=== PATIENT | female | born 1955 | race African-American/Black ===

== ENCOUNTER 2020-02-22 08:20 | Observation (INO) ==
[2020-02-22] MEDS ORDERED: DIAZEPAM 5 MG TABLET PO ONE (08:50)
[2020-02-22] MEDS ORDERED: fentaNYL 100 MCG/2 ML VIAL IV ONE (08:50)
[2020-02-22] MEDS ORDERED: MIDAZOLAM 2 MG/2 ML VIAL IV ONE (08:50)
[2020-02-22 09:05] LABS: Basophils % 0.4 % (0.0-0.8); Eosinophils # 0.1 10*3/uL (0.0-0.87); Eosinophils % 0.7 % (0.00-10.9); Hematocrit 41.3 VOL% (35.7-47.0); Hemoglobin 12.5 GM/DL (12.0-16.0); Immature Granulocytes % 0.6 %; Immature Granulocytes Absolute 0.05 #; Lymphocytes # 1.4 10*3/uL (1.4-4.0); Lymphocytes % 16.4 % (21.3-54.2); Mean Corpuscular HGB Conc 30.3 GM/DL (32-36); Mean Platelet Volume 9.4 FL (9.6-12.0); Monocytes % 7.4 % (1.7-12.7); Neutrophils % 74.5 % (38.7-73.9); Platelet Count 225 T/CUMM (130-400); Red Blood Count 4.54 MC/CUMM (3.8-5.5); Red Cell Distribution Width 13.2 % (9.3-17.3); White Blood Count 8.6 T/CUMM (4-12)
[2020-02-22 09:22] LABS: PT Patient Result 10.4 SECS (9.8-11.9); Partial Thromboplastin Time 25.9 SECS (23.9-33.8)
[2020-02-22] MEDS ORDERED: DIAZEPAM 5 MG TABLET ONE (09:43)
[2020-02-22] MEDS: SODIUM CHLORIDE 0.45% 1,000 ML IV SCH (09:45)
[2020-02-22] MEDS ORDERED: fentaNYL 100 MCG/2 ML VIAL ONE (10:32)
[2020-02-22] MEDS ORDERED: MIDAZOLAM 2 MG/2 ML VIAL ONE (10:33)
[2020-02-22] MEDS ORDERED: ACETAMINOPHEN 325 MG TABLET ONE (13:23)
[2020-02-22] MEDS ORDERED: ACETAMINOPHEN 325 MG TABLET PO STA (13:30)
[2020-02-22] MEDS ORDERED: NITROGLYCERIN SL 0.4 MG TABLET SL PRN (16:30)
[2020-02-22] MEDS ORDERED: IBUPROFEN 800 MG TABLET PO PRN (16:30)
[2020-02-22] MEDS: HYDROmorphone 2 MG/1 ML VIAL IV PRN ×2 (17:33→21:52)
[2020-02-22] MEDS ORDERED: ALBUTEROL 2.5 MG/3 ML NEB RESP TX PRN (19:00)
[2020-02-22] MEDS: HydrOXYzine PAMOATE 50 MG CAPSULE PO SCH (21:53)
[2020-02-22] MEDS: clonazePAM 0.5 MG TABLET PO SCH (21:53)
[2020-02-22] MEDS: carvediloL 12.5 MG TABLET PO SCH (21:53)
[2020-02-22] MEDS: CHOLECALCIFEROL 1,000 UNIT TABLET PO SCH (21:53)
[2020-02-22] MEDS: THEOPHYLLINE ER 300 MG TABLET PO SCH (21:53)
[2020-02-22] MEDS: BUDESONIDE/FORMOTEROL 80-4.5 INHALER 6.9 GM INH SCH (21:54)
[2020-02-22] MEDS: amLODIPine 10 MG TABLET PO SCH (21:54)
[2020-02-23] MEDS: ALBUTEROL/IPRATROPIUM 3 ML NEB RESP TX SCH ×5 (07:28→19:50)
[2020-02-23] MEDS: THEOPHYLLINE ER 300 MG TABLET PO SCH ×2 (08:34→20:58)
[2020-02-23] MEDS: clonazePAM 0.5 MG TABLET PO SCH ×2 (08:34→20:57)
[2020-02-23] MEDS: FUROSEMIDE 20 MG TABLET PO SCH (08:34)
[2020-02-23] MEDS: carvediloL 12.5 MG TABLET PO SCH ×2 (08:34→20:57)
[2020-02-23] MEDS: HydrOXYzine PAMOATE 50 MG CAPSULE PO SCH ×3 (08:34→20:58)
[2020-02-23] MEDS: LOSARTAN 50 MG TABLET PO SCH (08:34)
[2020-02-23] MEDS: VILAZODONE 20 MG PO SCH (08:35)
[2020-02-23] MEDS: BUDESONIDE/FORMOTEROL 80-4.5 INHALER 6.9 GM INH SCH ×2 (08:37→21:03)
[2020-02-23] MEDS: SODIUM CHLORIDE 0.45% 1,000 ML IV SCH (12:58)
[2020-02-23] MEDS: HYDROmorphone 2 MG/1 ML VIAL IV PRN (12:59)
[2020-02-23] MEDS ORDERED: HYDROmorphone 2 MG/1 ML VIAL IV PRN (16:12)
[2020-02-23] MEDS: amLODIPine 10 MG TABLET PO SCH (20:57)
[2020-02-23] MEDS: CHOLECALCIFEROL 1,000 UNIT TABLET PO SCH (20:58)
[2020-02-24] MEDS: ALBUTEROL/IPRATROPIUM 3 ML NEB RESP TX SCH ×4 (07:10→19:34)
[2020-02-24] MEDS: LOSARTAN 50 MG TABLET PO SCH (08:56)
[2020-02-24] MEDS: carvediloL 12.5 MG TABLET PO SCH ×2 (08:56→20:29)
[2020-02-24] MEDS: THEOPHYLLINE ER 300 MG TABLET PO SCH ×2 (08:57→20:29)
[2020-02-24] MEDS: clonazePAM 0.5 MG TABLET PO SCH ×2 (08:57→20:29)
[2020-02-24] MEDS: FUROSEMIDE 20 MG TABLET PO SCH (08:57)
[2020-02-24] MEDS: BUDESONIDE/FORMOTEROL 80-4.5 INHALER 6.9 GM INH SCH ×2 (08:57→20:32)
[2020-02-24] MEDS: HydrOXYzine PAMOATE 50 MG CAPSULE PO SCH ×3 (08:58→20:30)
[2020-02-24] MEDS: VILAZODONE 20 MG PO SCH (08:58)
[2020-02-24] MEDS: amLODIPine 10 MG TABLET PO SCH (20:29)
[2020-02-24] MEDS: CHOLECALCIFEROL 1,000 UNIT TABLET PO SCH (20:30)
[2020-02-24] MEDS: SODIUM CHLORIDE 0.45% 1,000 ML IV SCH ×2 (20:37→20:38)
[2020-02-25] MEDS: ALBUTEROL/IPRATROPIUM 3 ML NEB RESP TX SCH (07:28)
[2020-02-25 07:40] VITALS: BP 128/68
[2020-02-25] MEDS: clonazePAM 0.5 MG TABLET PO SCH ×2 (07:47→08:30)
[2020-02-25] MEDS: LOSARTAN 50 MG TABLET PO SCH ×2 (07:47→08:30)
[2020-02-25] MEDS: THEOPHYLLINE ER 300 MG TABLET PO SCH ×2 (07:47→08:31)
[2020-02-25] MEDS: FUROSEMIDE 20 MG TABLET PO SCH ×2 (07:48→08:30)
[2020-02-25] MEDS: HydrOXYzine PAMOATE 50 MG CAPSULE PO SCH ×2 (07:48→08:31)
[2020-02-25] MEDS: carvediloL 12.5 MG TABLET PO SCH ×2 (07:48→08:30)
[2020-02-25] MEDS: SODIUM CHLORIDE 0.45% 1,000 ML IV SCH (08:30)
[2020-02-25] MEDS: BUDESONIDE/FORMOTEROL 80-4.5 INHALER 6.9 GM INH SCH (08:31)
[2020-02-25] MEDS: VILAZODONE 20 MG PO SCH (08:31)
== END 2020-02-25 11:26 | disposition home or self-care (01) ==
LOC: N.RAD 08:20 → N.SDSINP 08:20 → N.TELES 08:20 → N.SDSINP 08:21 → N.TELES 14:46
PROVIDERS: ADMIT Radiology Body Imaging; ATTEND Radiology Body Imaging

== ENCOUNTER 2020-12-29 15:50 | Inpatient (IN) ==
[2020-12-29] MEDS ORDERED: ALBUTEROL 2.5 MG/3 ML NEB RESP TX STA (16:08)
[2020-12-29] MEDS ORDERED: methylPREDNISolone SOD SUC 125 MG/2 ML VIAL IV STA (16:08)
[2020-12-29] MEDS ORDERED: ETOMIDATE 20 MG/10 ML VIAL IV ONE (16:10)
[2020-12-29] MEDS ORDERED: ROCURONIUM 100 MG/10 ML VIAL IV ONE (16:11)
[2020-12-29] MEDS ORDERED: PIPERACILLIN/TAZOBACTAM 3,375 MG in SODIUM CHLORIDE 0.9% 100 ML IV STA (16:35)
[2020-12-29 16:38] LABS: ABG Base Excess 0.1 MMOL/L (-2.5-2.5); ABG HCO3 24.5 MMOL/L (20-26); ABG Oxygen Saturation 99.8 % (95-100); ABG PCO2 59.6 MM HG (35-48); ABG PH 7.284 (7.35-7.45); ABG TCO2 25.2 MMOL/L (23-27); Allen Test Positive; Pt O2 Delivery Device Ventilator
[2020-12-29 16:45] LABS: Basophils % 0.4 % (0.0-0.8); Eosinophils # 0.1 10*3/uL (0.0-0.87); Eosinophils % 0.6 % (0.00-10.9); Hematocrit 43.4 VOL% (35.7-47.0); Hemoglobin 12.5 GM/DL (12.0-16.0); Immature Granulocytes % 1.7 %; Immature Granulocytes Absolute 0.14 #; Lymphocytes # 2.9 10*3/uL (1.4-4.0); Lymphocytes % 34.6 % (21.3-54.2); Mean Corpuscular HGB Conc 28.8 GM/DL (32-36); Mean Corpuscular Volume 94.3 FL (87-102); Mean Platelet Volume 9.8 FL (9.6-12.0); Monocytes % 9.8 % (1.7-12.7); Neutrophils % 52.9 % (38.7-73.9); Platelet Count 215 T/CUMM (130-400); Red Cell Distribution Width 13.2 % (9.3-17.3); White Blood Count 8.2 T/CUMM (4-12)
[2020-12-29 16:49] LABS: Amorphous Crystals,Urine Occasional /HPF (Few); Bilirubin,Urine Negative (Negative); Blood, Urine Negative (Negative); Glucose,Urine (UA) 50 mg/dL (Negative); Ketones,Urine Negative (Negative); Nitrite,Urine Negative (Negative); Protein,Urine 30 MG/DL; Urine Appearance CLOUDY (Clear); Urine Color Yellow (Yellow); Urine Specific Gravity 1.013 (1.001-1.035); Urine Urobilinogen < 2.0 EU/DL (0.2-1.0)
[2020-12-29 16:56] LABS: PT Patient Result 10.4 SECS (9.8-11.9)
[2020-12-29] MEDS ORDERED: SODIUM CHLORIDE 0.9% 1,000 ML IV STA (17:00)
[2020-12-29 17:12] LABS: Alanine Aminotransferase 27 U/L (13-56); Albumin 3.2 G/DL (3.4-5.0); Alkaline Phosphatase 68 U/L (45-117); Aspartate Amino Transferase 36 U/L (0-37); Bilirubin,Total < 0.39 MG/DL (0.2-1.0); Blood Urea Nitrogen 17 MG/DL (7-18); Calcium 8.6 MG/DL (8.5-10.1); Carbon Dioxide 29 MMOL/L (21-32); Estimated Glom Filtration Rate 61 ML/MIN; Glucose 174 MG/DL (74-106); Osmolality,Calculated 284.4 MOS/KG (273-304); Sodium 140 MMOL/L (136-145); Total Protein 6.3 G/DL (6.4-8.3)
[2020-12-29] MEDS ORDERED: PIPERACILLIN/TAZOBACTAM 3,375 MG VIAL IV ONE (17:18)
[2020-12-29 17:22] LABS: Anisocytosis Slight; Elliptocytes Few; Hypochromasia 1+; Platelet Estimate Adequate
[2020-12-29] MEDS ORDERED: ALBUTEROL/IPRATROPIUM 3 ML NEB RESP TX STA (18:01)
[2020-12-29] MEDS ORDERED: guaiFENesin/DM ER 600-30 MG TABLET PO PRN (18:02)
[2020-12-29] MEDS ORDERED: ONDANSETRON 4 MG/2 ML VIAL IV PRN (18:02)
[2020-12-29] MEDS ORDERED: ALBUTEROL 2.5 MG/3 ML NEB RESP TX PRN (18:02)
[2020-12-29] MEDS ORDERED: PHENYLEPHRINE DRIP 40 MG/250 ML PREMIX IV SCH (18:30)
[2020-12-29] MEDS: ALBUTEROL/IPRATROPIUM 3 ML NEB RESP TX SCH (19:30)
[2020-12-29] MEDS: LACTATED RINGERS 1,000 ML IV SCH (20:00)
[2020-12-29] MEDS: MIDAZOLAM 100 MG in SODIUM CHLORIDE 0.9% 80 ML IV PRN (20:00)
[2020-12-29] MEDS: PANTOPRAZOLE 40 MG VIAL IV SCH (22:02)
[2020-12-29] MEDS: ENOXAPARIN 40 MG/0.4 ML SYRINGE SUBCUT SCH (22:50)
[2020-12-29] MEDS: LEVOFLOXACIN INJ 750 MG in PREMIX 1 EACH IV SCH (22:50)
[2020-12-29] MEDS: HYDROmorphone 2 MG/1 ML VIAL IV PRN (23:39)
[2020-12-29] MEDS: methylPREDNISolone SOD SUC 40 MG/1 ML VIAL IV SCH (23:45)
[2020-12-30] MEDS: ALBUTEROL/IPRATROPIUM 3 ML NEB RESP TX SCH ×4 (01:45→20:01)
[2020-12-30 02:16] LABS: Basophils % 0.1 % (0.0-0.8); Hematocrit 37.4 VOL% (35.7-47.0); Hemoglobin 11.6 GM/DL (12.0-16.0); Immature Granulocytes % 0.8 %; Immature Granulocytes Absolute 0.06 #; Lymphocytes # 0.5 10*3/uL (1.4-4.0); Lymphocytes % 6.5 % (21.3-54.2); Mean Corpuscular Volume 87.2 FL (87-102); Mean Platelet Volume 9.8 FL (9.6-12.0); Monocytes % 1.3 % (1.7-12.7); Neutrophils % 91.3 % (38.7-73.9); Platelet Count 169 T/CUMM (130-400); Red Blood Count 4.29 MC/CUMM (3.8-5.5); Red Cell Distribution Width 13.2 % (9.3-17.3); White Blood Count 7.2 T/CUMM (4-12)
[2020-12-30 02:38] LABS: Albumin 2.9 G/DL (3.4-5.0); Bilirubin,Total 1.3 MG/DL (0.2-1.0); Calcium 8.8 MG/DL (8.5-10.1); Osmolality,Calculated 285.4 MOS/KG (273-304); Potassium 3.5 MMOL/L (3.5-5.1); Total Protein 6.3 G/DL (6.4-8.3)
[2020-12-30 03:11] LABS: Band Neutrophils 1 % (0-10); Lymphocytes 12 % (20-55); Segmented Neutrophils 87 % (50-85); Total Cells Counted 100
[2020-12-30 03:12] LABS: Hypochromasia Slight; Ovalocytes 1+; Platelet Estimate Normal
[2020-12-30 03:13] LABS: Microcytosis 2+
[2020-12-30] MEDS: HYDROmorphone 2 MG/1 ML VIAL IV PRN ×3 (04:20→12:20)
[2020-12-30] MEDS: LACTATED RINGERS 1,000 ML IV SCH ×4 (06:21→20:30)
[2020-12-30 06:37] LABS: ABG Base Excess 4.5 MMOL/L (-2.5-2.5); ABG HCO3 27.4 MMOL/L (20-26); ABG Oxygen Saturation 98.6 % (95-100); ABG PCO2 34.5 MM HG (35-48); ABG PH 7.518 (7.35-7.45); ABG PO2 201.6 MM HG (80-95); ABG TCO2 28.5 MMOL/L (23-27); Allen Test Positive; Pt O2 Delivery Device Ventilator
[2020-12-30] MEDS: MIDAZOLAM 100 MG in SODIUM CHLORIDE 0.9% 80 ML IV PRN (08:00)
[2020-12-30] MEDS: methylPREDNISolone SOD SUC 40 MG/1 ML VIAL IV SCH ×2 (08:55→17:43)
[2020-12-30 09:52] LABS: ABG Base Excess 4.3 MMOL/L (-2.5-2.5); ABG HCO3 28.2 MMOL/L (20-26); ABG PCO2 40.2 MM HG (35-48); ABG PH 7.457 (7.35-7.45); ABG TCO2 25.4 MMOL/L (23-27)
[2020-12-30] MEDS: PANTOPRAZOLE 40 MG VIAL IV SCH (17:43)
[2020-12-30] MEDS: ACETAMINOPHEN 325 MG TABLET PO PRN (17:44)
[2020-12-30] MEDS: clonazePAM 0.5 MG TABLET PO SCH (20:20)
[2020-12-30] MEDS: ENOXAPARIN 40 MG/0.4 ML SYRINGE SUBCUT SCH (20:20)
[2020-12-30] MEDS: LEVOFLOXACIN INJ 750 MG in PREMIX 1 EACH IV SCH (20:22)
[2020-12-31] MEDS: methylPREDNISolone SOD SUC 40 MG/1 ML VIAL IV SCH ×2 (00:07→08:56)
[2020-12-31] MEDS: ALBUTEROL/IPRATROPIUM 3 ML NEB RESP TX SCH ×4 (00:57→19:44)
[2020-12-31 07:44] LABS: Basophils % 0.1 % (0.0-0.8); Hematocrit 36.2 VOL% (35.7-47.0); Immature Granulocytes % 0.9 %; Immature Granulocytes Absolute 0.11 #; Lymphocytes # 0.5 10*3/uL (1.4-4.0); Lymphocytes % 4.2 % (21.3-54.2); Mean Corpuscular HGB Conc 30.4 GM/DL (32-36); Mean Corpuscular Volume 89.8 FL (87-102); Mean Platelet Volume 10.5 FL (9.6-12.0); Monocytes % 2.2 % (1.7-12.7); Neutrophils % 92.6 % (38.7-73.9); Platelet Count 168 T/CUMM (130-400); Red Blood Count 4.03 MC/CUMM (3.8-5.5); Red Cell Distribution Width 13.4 % (9.3-17.3); White Blood Count 12.5 T/CUMM (4-12)
[2020-12-31 08:02] LABS: Alanine Aminotransferase 34 U/L (13-56); Albumin 2.9 G/DL (3.4-5.0); Alkaline Phosphatase 74 U/L (45-117); Aspartate Amino Transferase 42 U/L (0-37); Bilirubin,Total < 0.39 MG/DL (0.2-1.0); Blood Urea Nitrogen 19 MG/DL (7-18); Calcium 8.6 MG/DL (8.5-10.1); Carbon Dioxide 28 MMOL/L (21-32); Estimated Glom Filtration Rate 89 ML/MIN; Glucose 124 MG/DL (74-106); Potassium 3.8 MMOL/L (3.5-5.1); Total Protein 6.2 G/DL (6.4-8.3)
[2020-12-31 08:10] LABS: Osmolality,Calculated 281.4 MOS/KG (273-304); Sodium 140 MMOL/L (136-145)
[2020-12-31 08:15] LABS: Band Neutrophils 6 % (0-10); Lymphocytes 5 % (20-55); Nucleated Red Blood Cells 1 (0-5); Platelet Estimate Normal; Segmented Neutrophils 88 % (50-85); Total Cells Counted 100
[2020-12-31 08:16] LABS: Anisocytosis 2+; Burr Cells Few; Macrocytosis Slight
[2020-12-31] MEDS: clonazePAM 0.5 MG TABLET PO SCH ×3 (08:55→20:17)
[2020-12-31] MEDS: LACTATED RINGERS 1,000 ML IV SCH (08:56)
[2020-12-31] MEDS ORDERED: NITROGLYCERIN SL 0.4 MG TABLET SL PRN (10:31)
[2020-12-31] MEDS ORDERED: carvediloL 12.5 MG TABLET PO SCH (11:00)
[2020-12-31] MEDS: BUDESONIDE/FORMOTEROL 80-4.5 INHALER 6.9 GM INH SCH ×2 (12:01→20:18)
[2020-12-31] MEDS: CLOPIDOGREL 75 MG TABLET PO SCH (12:01)
[2020-12-31] MEDS: ROSUVASTATIN 10 MG TABLET PO SCH (12:01)
[2020-12-31] MEDS: THEOPHYLLINE ER 300 MG TABLET PO SCH ×2 (12:01→20:18)
[2020-12-31] MEDS: ASPIRIN EC 81 MG TABLET PO SCH (12:01)
[2020-12-31] MEDS: ACETAMINOPHEN 325 MG TABLET PO PRN (18:16)
[2020-12-31] MEDS: PANTOPRAZOLE 40 MG VIAL IV SCH (18:23)
[2020-12-31] MEDS: ENOXAPARIN 40 MG/0.4 ML SYRINGE SUBCUT SCH (20:18)
[2020-12-31] MEDS: carvediloL 3.125 MG TABLET PO SCH (20:18)
[2020-12-31] MEDS: LEVOFLOXACIN INJ 750 MG in PREMIX 1 EACH IV SCH (20:19)
[2020-12-31] MEDS ORDERED: CHOLECALCIFEROL 1,000 UNIT TABLET PO SCH (21:00)
[2021-01-01] MEDS: ALBUTEROL/IPRATROPIUM 3 ML NEB RESP TX SCH ×2 (01:00→08:25)
[2021-01-01] MEDS ORDERED: predniSONE 20 MG TABLET PO SCH (09:00)
[2021-01-01] MEDS: THEOPHYLLINE ER 300 MG TABLET PO SCH (09:11)
[2021-01-01] MEDS: clonazePAM 0.5 MG TABLET PO SCH (09:11)
[2021-01-01] MEDS: ASPIRIN EC 81 MG TABLET PO SCH (09:12)
[2021-01-01] MEDS: CLOPIDOGREL 75 MG TABLET PO SCH (09:13)
[2021-01-01] MEDS: carvediloL 3.125 MG TABLET PO SCH (09:13)
[2021-01-01] MEDS: BUDESONIDE/FORMOTEROL 80-4.5 INHALER 6.9 GM INH SCH (09:14)
[2021-01-01] MEDS: ROSUVASTATIN 10 MG TABLET PO SCH (09:14)
[2021-01-01 12:10] VITALS: BP 129/63
== END 2021-01-01 13:47 | disposition home or self-care (01) | DRG 208 ==
LOC: N.ED 15:50 → SUATTDRO 18:02 → N.EDINP 18:02 → N.ICU 18:54 → N.5E 12-30 16:35
PROVIDERS: ADMIT Family Medicine; ATTEND Internal Medicine

== ENCOUNTER 2021-08-27 13:10 | Inpatient (IN) ==
[2021-08-27] MEDS ORDERED: MAGNESIUM SULF RIDER 2 GM/50 ML PREMIX IV STA (13:29)
[2021-08-27] MEDS ORDERED: LIDOCAINE DRIP 2,000 MG/250 ML PREMIX IV SCH (13:30)
[2021-08-27 14:54] LABS: ABG Base Excess 13.5 MMOL/L (-2.5-2.5); ABG HCO3 37.3 MMOL/L (20-26); ABG Oxygen Saturation 99.4 % (95-100); ABG PCO2 66.7 MM HG (35-48); ABG TCO2 37.1 MMOL/L (23-27)
[2021-08-27 15:18] LABS: Basophils % 0.1 % (0.0-0.8); Hematocrit 35.2 VOL% (35.7-47.0); Hemoglobin 11.4 GM/DL (12.0-16.0); Immature Granulocytes % 3.7 %; Immature Granulocytes Absolute 0.32 #; Lymphocytes # 0.4 10*3/uL (1.4-4.0); Lymphocytes % 4.9 % (21.3-54.2); Mean Corpuscular HGB Conc 32.4 GM/DL (32-36); Mean Corpuscular Volume 93.1 FL (87-102); Mean Platelet Volume 8.7 FL (9.6-12.0); Monocytes % 4.5 % (1.7-12.7); Neutrophils % 86.8 % (38.7-73.9); Platelet Count 263 T/CUMM (130-400); Red Blood Count 3.78 MC/CUMM (3.8-5.5); Red Cell Distribution Width 12.8 % (9.3-17.3); White Blood Count 8.7 T/CUMM (4-12)
[2021-08-27 15:59] LABS: Albumin 3.2 G/DL (3.4-5.0); Bilirubin,Total 0.5 MG/DL (0.20-1.00); Calcium 9.6 MG/DL (8.5-10.1); Osmolality,Calculated 272.8 MOS/KG (273-304); Potassium 2.8 MMOL/L (3.5-5.1); Thyroid Stimulating Hormone 0.775 uIU/ml (0.358-3.74); Total Protein 6.7 G/DL (6.4-8.2)
[2021-08-27] MEDS ORDERED: ONDANSETRON 4 MG/2 ML VIAL IV PRN (16:23)
[2021-08-27] MEDS ORDERED: BACLOFEN 10 MG TABLET PO PRN (17:11)
[2021-08-27] MEDS: methylPREDNISolone SOD SUC 40 MG/1 ML VIAL IV SCH (17:40)
[2021-08-27] MEDS: POTASSIUM CHLORIDE 20 MEQ TABLET PO SCH ×3 (17:40→20:16)
[2021-08-27] MEDS ORDERED: INFLUENZA VIRUS VACCINE 0.5 ML SYRINGE IM ONE (17:57)
[2021-08-27] MEDS: AZITHROMYCIN INJ 250 MG in SODIUM CHLORIDE 0.9% 250 ML IV SCH (18:50)
[2021-08-27 18:53] LABS: Barbiturates Screen,Urine Negative (Negative); Benzodiazepines Screen,Urine Negative (Negative); Cannabinoid Screen,Urine Negative (Negative); Opiate Screen,Urine Negative (Negative); Phencyclidine Screen,Urine Negative (Negative)
[2021-08-27] MEDS: ALPRAZolam 0.25 MG TABLET PO PRN (18:53)
[2021-08-27 20:16] LABS: INR 0.9; PT Patient Result 10.6 SECS (10.5-12.0); Partial Thromboplastin Time 20.8 SECS (23.8-32.1)
[2021-08-27] MEDS: DOCUSATE SODIUM 100 MG CAPSULE PO SCH (20:16)
[2021-08-27] MEDS: CHOLECALCIFEROL 1,000 UNIT TABLET PO SCH (20:16)
[2021-08-27] MEDS: THEOPHYLLINE ER (24 HR) 200 MG CAPSULE PO SCH (20:16)
[2021-08-27] MEDS: carvediloL 12.5 MG TABLET PO SCH (20:16)
[2021-08-27] MEDS: BUDESONIDE/FORMOTEROL 80-4.5 INHALER 6.9 GM INH SCH (20:22)
[2021-08-27] MEDS ORDERED: ALPRAZolam 0.5 MG TABLET PO ONE (20:49)
[2021-08-27] MEDS: clonazePAM 0.5 MG TABLET PO SCH (21:18)
[2021-08-27] MEDS ORDERED: POTASSIUM CHLORIDE 20 MEQ TABLET PO SCH (21:30)
[2021-08-27] MEDS ORDERED: METOPROLOL TARTRATE 5 MG/5 ML VIAL IV ONE (23:30)
[2021-08-27] MEDS: ALBUTEROL 2.5 MG/3 ML NEB RESP TX PRN (23:32)
[2021-08-28] MEDS: methylPREDNISolone SOD SUC 40 MG/1 ML VIAL IV SCH ×2 (06:00→16:34)
[2021-08-28 06:27] LABS: Basophils % 0.4 % (0.0-0.8); Eosinophils % 0.1 % (0.00-10.9); Hemoglobin 9.9 GM/DL (12.0-16.0); Immature Granulocytes % 4.3 %; Lymphocytes # 1.2 10*3/uL (1.4-4.0); Lymphocytes % 17.2 % (21.3-54.2); Mean Corpuscular HGB Conc 31.9 GM/DL (32-36); Mean Corpuscular Volume 93.4 FL (87-102); Mean Platelet Volume 8.8 FL (9.6-12.0); Monocytes % 10.3 % (1.7-12.7); Neutrophils % 67.7 % (38.7-73.9); Platelet Count 245 T/CUMM (130-400); Red Blood Count 3.32 MC/CUMM (3.8-5.5); Red Cell Distribution Width 12.8 % (9.3-17.3)
[2021-08-28 06:47] LABS: Albumin 2.9 G/DL (3.4-5.0); Bilirubin,Total 0.4 MG/DL (0.20-1.00); Calcium 8.8 MG/DL (8.5-10.1); Osmolality,Calculated 270.7 MOS/KG (273-304); Potassium 3.5 MMOL/L (3.5-5.1); Risk Ratio 2.65; Total Protein 5.9 G/DL (6.4-8.2)
[2021-08-28] MEDS: ALBUTEROL/IPRATROPIUM 3 ML NEB RESP TX PRN ×2 (07:05→13:10)
[2021-08-28] MEDS: PANTOPRAZOLE 40 MG TABLET PO SCH (08:01)
[2021-08-28] MEDS: POTASSIUM CHLORIDE 20 MEQ TABLET PO SCH ×2 (08:01→21:27)
[2021-08-28] MEDS: ASPIRIN EC 81 MG TABLET PO SCH (08:01)
[2021-08-28] MEDS: THEOPHYLLINE ER (24 HR) 200 MG CAPSULE PO SCH ×2 (08:01→21:27)
[2021-08-28] MEDS: CLOPIDOGREL 75 MG TABLET PO SCH (08:01)
[2021-08-28] MEDS: clonazePAM 0.5 MG TABLET PO SCH ×2 (08:01→21:27)
[2021-08-28] MEDS: carvediloL 12.5 MG TABLET PO SCH ×2 (08:02→21:27)
[2021-08-28] MEDS: BUDESONIDE/FORMOTEROL 80-4.5 INHALER 6.9 GM INH SCH ×2 (08:02→21:27)
[2021-08-28] MEDS: ACETAMINOPHEN 500 MG TABLET PO PRN (13:14)
[2021-08-28] MEDS: ALPRAZolam 0.25 MG TABLET PO PRN (15:08)
[2021-08-28] MEDS ORDERED: ALBUTEROL/IPRATROPIUM 3 ML NEB RESP TX PRN (15:53)
[2021-08-28] MEDS: AZITHROMYCIN INJ 250 MG in SODIUM CHLORIDE 0.9% 250 ML IV SCH (16:34)
[2021-08-28] MEDS ORDERED: PROMETHAZINE 25 MG TABLET PO PRN (17:47)
[2021-08-28] MEDS: CHOLECALCIFEROL 1,000 UNIT TABLET PO SCH (21:27)
[2021-08-28] MEDS: DOCUSATE SODIUM 100 MG CAPSULE PO SCH (21:27)
[2021-08-29 05:33] LABS: Alanine Aminotransferase 18 U/L (13-56); Albumin 2.7 G/DL (3.4-5.0); Alkaline Phosphatase 33 U/L (45-117); Aspartate Amino Transferase 13 U/L (0-37); Bilirubin,Total < 0.39 MG/DL (0.20-1.00); Blood Urea Nitrogen 33 MG/DL (7-18); Estimated Glom Filtration Rate 57 ML/MIN; Glucose 128 MG/DL (74-106); Potassium 3.7 MMOL/L (3.5-5.1); Total Protein 5.6 G/DL (6.4-8.2)
[2021-08-29 05:36] LABS: Osmolality,Calculated 268.8 MOS/KG (273-304); Sodium 130 MMOL/L (136-145)
[2021-08-29 05:38] LABS: Carbon Dioxide 37 MMOL/L (21-32)
[2021-08-29] MEDS: methylPREDNISolone SOD SUC 40 MG/1 ML VIAL IV SCH ×2 (06:56→14:31)
[2021-08-29] MEDS: PANTOPRAZOLE 40 MG TABLET PO SCH (08:25)
[2021-08-29] MEDS: THEOPHYLLINE ER (24 HR) 200 MG CAPSULE PO SCH (08:25)
[2021-08-29] MEDS: BUDESONIDE/FORMOTEROL 80-4.5 INHALER 6.9 GM INH SCH (08:25)
[2021-08-29] MEDS: carvediloL 12.5 MG TABLET PO SCH (08:25)
[2021-08-29] MEDS: CLOPIDOGREL 75 MG TABLET PO SCH (08:25)
[2021-08-29] MEDS: clonazePAM 0.5 MG TABLET PO SCH (08:25)
[2021-08-29] MEDS: ASPIRIN EC 81 MG TABLET PO SCH (08:25)
[2021-08-29] MEDS: POTASSIUM CHLORIDE 20 MEQ TABLET PO SCH (08:31)
[2021-08-29] MEDS: ALBUTEROL 2.5 MG/3 ML NEB RESP TX PRN (12:48)
[2021-08-29] MEDS: ACETAMINOPHEN 500 MG TABLET PO PRN (14:31)
[2021-08-29 16:07] VITALS: BP 123/104
== END 2021-08-29 15:58 | disposition hospice, home (50) | DRG 191 ==
LOC: EDUNIT# → N.ED 13:10 → N.EDINP 16:23 → N.CC 16:47
PROVIDERS: ADMIT Internal Medicine; ATTEND Internal Medicine

== ENCOUNTER 2021-09-29 01:22 | Observation (INO) ==
[2021-09-29] MEDS ORDERED: ONDANSETRON 4 MG/2 ML VIAL IV STA (01:39)
[2021-09-29] MEDS ORDERED: MORPHINE 2 MG/1 ML SYRINGE IV STA (01:47)
[2021-09-29 02:15] LABS: Basophils % 0.2 % (0.0-0.8); Eosinophils % 0.2 % (0.00-10.9); Hemoglobin 11.6 GM/DL (12.0-16.0); Immature Granulocytes % 3.2 %; Immature Granulocytes Absolute 0.39 #; Lymphocytes # 0.8 10*3/uL (1.4-4.0); Lymphocytes % 6.6 % (21.3-54.2); Mean Corpuscular HGB Conc 30.5 GM/DL (32-36); Mean Corpuscular Volume 96.4 FL (87-102); Mean Platelet Volume 9.3 FL (9.6-12.0); Monocytes % 5.1 % (1.7-12.7); Neutrophils % 84.7 % (38.7-73.9); Platelet Count 281 T/CUMM (130-400); Red Blood Count 3.94 MC/CUMM (3.8-5.5); Red Cell Distribution Width 13.2 % (9.3-17.3); White Blood Count 12.2 T/CUMM (4-12)
[2021-09-29 02:26] LABS: Alanine Aminotransferase 23 U/L (13-56); Albumin 3.4 G/DL (3.4-5.0); Alkaline Phosphatase 49 U/L (45-117); Aspartate Amino Transferase 16 U/L (0-37); Bilirubin,Total < 0.39 MG/DL (0.20-1.00); Blood Urea Nitrogen 12 MG/DL (7-18); Calcium 9.6 MG/DL (8.5-10.1); Carbon Dioxide 43 MMOL/L (21-32); Estimated Glom Filtration Rate 51 ML/MIN; Glucose 136 MG/DL (74-106); Osmolality,Calculated 263.7 MOS/KG (273-304); Potassium 3.3 MMOL/L (3.5-5.1); Sodium 131 MMOL/L (136-145); Total Protein 6.3 G/DL (6.4-8.2)
[2021-09-29] MEDS ORDERED: LORazepam 2 MG/1 ML VIAL IV STA (02:52)
[2021-09-29] MEDS ORDERED: GLUCAGON 1 MG VIAL IM PRN (03:35)
[2021-09-29] MEDS ORDERED: DEXTROSE 50% 25 GM/50 ML SYRINGE IV PRN (03:35)
[2021-09-29] MEDS ORDERED: LORazepam 0.5 MG TABLET PO PRN (03:45)
[2021-09-29] MEDS ORDERED: hydrALAZINE 20 MG/1 ML VIAL IV PRN (03:45)
[2021-09-29] MEDS ORDERED: ONDANSETRON 4 MG/2 ML VIAL IV PRN (03:45)
[2021-09-29] MEDS ORDERED: MORPHINE 2 MG/1 ML SYRINGE IV PRN (03:45)
[2021-09-29] MEDS ORDERED: POTASSIUM CHLORIDE RIDER 10 MEQ/100 ML PREMIX IV PRN (04:27)
[2021-09-29 04:30] LABS: Risk Ratio 3.72; Thyroid Stimulating Hormone 0.779 uIU/ml (0.358-3.74)
[2021-09-29] MEDS: ALBUTEROL/IPRATROPIUM 3 ML NEB RESP TX SCH ×3 (07:19→20:21)
[2021-09-29] MEDS: POTASSIUM CHLORIDE 20 MEQ TABLET PO SCH (08:45)
[2021-09-29] MEDS: ENOXAPARIN 40 MG/0.4 ML SYRINGE SUBCUT SCH (08:45)
[2021-09-29] MEDS: PANTOPRAZOLE 40 MG TABLET PO SCH (08:45)
[2021-09-29] MEDS: CLOPIDOGREL 75 MG TABLET PO SCH (08:46)
[2021-09-29] MEDS: ASPIRIN EC 81 MG TABLET PO SCH (08:46)
[2021-09-29] MEDS: LORazepam 1 MG TABLET PO PRN (16:46)
[2021-09-30] MEDS: ALBUTEROL/IPRATROPIUM 3 ML NEB RESP TX SCH ×5 (01:10→19:48)
[2021-09-30 06:30] LABS: Calcium 9.6 MG/DL (8.5-10.1); Osmolality,Calculated 265.4 MOS/KG (273-304); Potassium 2.9 MMOL/L (3.5-5.1)
[2021-09-30] MEDS: CLOPIDOGREL 75 MG TABLET PO SCH (08:09)
[2021-09-30] MEDS: LORazepam 1 MG TABLET PO PRN ×2 (08:09→14:11)
[2021-09-30] MEDS: POTASSIUM CHLORIDE 20 MEQ TABLET PO SCH ×2 (08:09→21:40)
[2021-09-30] MEDS: ENOXAPARIN 40 MG/0.4 ML SYRINGE SUBCUT SCH (08:09)
[2021-09-30] MEDS: PANTOPRAZOLE 40 MG TABLET PO SCH (08:09)
[2021-09-30] MEDS: ASPIRIN EC 81 MG TABLET PO SCH (08:10)
[2021-09-30] MEDS ORDERED: MAGNESIUM SULF RIDER 2 GM/50 ML PREMIX IV PRN (08:12)
[2021-09-30] MEDS ORDERED: MAGNESIUM SULF RIDER 4 GM/100 ML PREMIX IV PRN (08:12)
[2021-09-30] MEDS: LACTATED RINGERS 1,000 ML IV SCH (10:01)
[2021-09-30] MEDS: POTASSIUM CHLORIDE 20 MEQ TABLET PO PRN ×3 (10:01→14:08)
[2021-09-30] MEDS: ACETAMINOPHEN 325 MG TABLET PO PRN ×2 (11:38→15:59)
[2021-09-30] MEDS ORDERED: PROMETHAZINE INJ 12.5 MG in SODIUM CHLORIDE 0.9% 50 ML IV PRN (20:41)
[2021-09-30] MEDS ORDERED: CHOLECALCIFEROL 1,000 UNIT TABLET PO SCH (21:00)
[2021-09-30] MEDS ORDERED: carvediloL 12.5 MG TABLET PO SCH (21:00)
[2021-09-30] MEDS ORDERED: ATORVASTATIN 40 MG TABLET PO SCH (21:00)
[2021-09-30] MEDS: carvediloL 25 MG TABLET PO SCH (21:40)
[2021-09-30] MEDS: THEOPHYLLINE ER (24 HR) 200 MG CAPSULE PO SCH (21:40)
[2021-10-01] MEDS: ALBUTEROL/IPRATROPIUM 3 ML NEB RESP TX SCH ×2 (00:40→07:43)
[2021-10-01 04:26] LABS: Basophils % 0.3 % (0.0-0.8); Eosinophils % 0.4 % (0.00-10.9); Hematocrit 30.6 VOL% (35.7-47.0); Hemoglobin 9.3 GM/DL (12.0-16.0); Immature Granulocytes % 4.1 %; Immature Granulocytes Absolute 0.28 #; Lymphocytes # 0.6 10*3/uL (1.4-4.0); Lymphocytes % 9.2 % (21.3-54.2); Mean Corpuscular HGB Conc 30.4 GM/DL (32-36); Mean Corpuscular Volume 96.5 FL (87-102); Mean Platelet Volume 9.6 FL (9.6-12.0); Monocytes % 9.7 % (1.7-12.7); Neutrophils % 76.3 % (38.7-73.9); Platelet Count 210 T/CUMM (130-400); Red Blood Count 3.17 MC/CUMM (3.8-5.5); White Blood Count 6.9 T/CUMM (4-12)
[2021-10-01 04:43] LABS: Albumin 2.3 G/DL (3.4-5.0); Bilirubin,Total 0.8 MG/DL (0.20-1.00); Calcium 8.8 MG/DL (8.5-10.1); Osmolality,Calculated 257.1 MOS/KG (273-304); Potassium 3.7 MMOL/L (3.5-5.1); Total Protein 5.2 G/DL (6.4-8.2)
[2021-10-01] MEDS: LORazepam 1 MG TABLET PO PRN ×2 (05:45→10:41)
[2021-10-01] MEDS: THEOPHYLLINE ER (24 HR) 200 MG CAPSULE PO SCH (08:22)
[2021-10-01] MEDS: POTASSIUM CHLORIDE 20 MEQ TABLET PO SCH (08:22)
[2021-10-01] MEDS: ENOXAPARIN 40 MG/0.4 ML SYRINGE SUBCUT SCH (08:22)
[2021-10-01] MEDS: POTASSIUM CHLORIDE 20 MEQ TABLET PO PRN (08:22)
[2021-10-01] MEDS: CLOPIDOGREL 75 MG TABLET PO SCH (08:23)
[2021-10-01] MEDS: carvediloL 25 MG TABLET PO SCH (08:23)
[2021-10-01] MEDS: PANTOPRAZOLE 40 MG TABLET PO SCH (08:23)
[2021-10-01] MEDS: ASPIRIN EC 81 MG TABLET PO SCH (08:23)
[2021-10-01] MEDS: LACTATED RINGERS 1,000 ML IV SCH (08:24)
[2021-10-01] MEDS ORDERED: predniSONE 10 MG TABLET PO SCH (09:00)
[2021-10-01] MEDS ORDERED: metOLazone 5 MG TABLET PO SCH (09:00)
[2021-10-01] MEDS ORDERED: LOSARTAN 25 MG TABLET PO SCH (09:00)
[2021-10-01 12:33] VITALS: BP 99/67
== END 2021-10-01 12:41 | disposition home or self-care (01) ==
LOC: N.ED 01:22 → N.EDINP 01:22 → SUATTDRO 03:45 → N.EDINP 05:58 → N.TELES 06:32
PROVIDERS: ADMIT Internal Medicine; ATTEND Internal Medicine